=== PATIENT | male | born 1995 | race African-American/Black ===

== ENCOUNTER 2019-03-12 03:58 | Emergency (ER) | payer BC ==
[2019-03-12 04:05] VITALS: BP 117/78; PULSE 81; TEMP 98.5; BMI 21.7
--- NOTE | 2019-03-12 04:42 | PDOC ---
History of Present Illness - General Chief Complaint: Injury Stated Complaint: LACERATION TO UPPER LIP Time Seen by Provider: 03/12/19 04:17 History Source: Patient Exam Limitations: No Limitations - History of Present Illness Initial Comments: 03/12/19 04:42 This is a 23-year-old male who comes in complaining of a laceration to his upper lip. Patient was playing basketball when he collided with another player resulting in the laceration. Patient otherwise denies any loss of consciousness or any other complaints. Patient is otherwise healthy is immunizations are up-to -date. Allergies: as per nursing notes Past Medical History: none Social history: Lives with family. No smoking. No alcohol. No illicit drugs. Surgical history: None General: No fevers or chills, no weakness, no weight loss HEENT: No change in vision. No sore throat,. No ear pain, laceration upper lip as per history of present illness CardioVascular: no chest discomfort. No shortness of breath Respiratory:No cough, or wheezing. Gastrointestinal: no nausea, vomiting, diarrhea or constipation, No rectal bleeding Genitourinary: No dysuria, hematuria, or frequency Musculoskeletal: No joint or muscle pain or swelling Neurologic: No headache, vertigo, dizziness or loss of consciousness Psychiatric: nor depression Skin: No rashes or easy bruising Endocrine: no increased thirst or abnormal weight change Allergic: no skin or latex allergy All other systems reviewed and normal GENERAL: The patient is awake, alert, and fully oriented, in no acute distress. HEAD: There is a V-shaped laceration to the upper lip approximately 1/2 cm total length. Teeth are intact, there is no tenderness of the jaw. EYES: Pupils equal, round and reactive to light, extraocular movements intact, sclera anicteric, conjunctiva clear. EXTREMITIES:atraumatic, Normal range of motion, no edema. NEUROLOGICAL: Normal speech, normal gait. PSYCH: Normal mood, normal affect. SKIN: Warm, Dry, normal turgor, no rashes or lesions noted. Procedure note: Laceration repair Laceration was cleaned with peroxide and anesthetized with 1% lidocaine no epinephrine Laceration was closed with 4 sutures of 5-0 Ethilon. Sutures were simple interrupted Bacitracin was placed on the laceration Patient tolerated well Past History - Past Medical History Allergies/Adverse Reactions: Allergies Allergy/AdvReac Type Severity Reaction Status Date / Time No Known Allergies Allergy Verified 03/12/19 04:00 Home Medications: Ambulatory Orders NK [No Known Home Medication] 02/11/16 COPD: No Other medical history: NERVE DAMAGE RIGHT ARM - Immunization History Immunization Up to Date: Yes - Suicide/Smoking/Psychosocial Hx Smoking History: Never smoked Have you smoked in the past 12 months: No Information on smoking cessation initiated: No Hx Alcohol Use: No Drug/Substance Use Hx: No Substance Use Type: None *Physical Exam - Vital Signs Last Vital Signs Temp Pulse Resp BP Pulse Ox 98.5 F 81 16 117/78 96 03/12/19 04:01 03/12/19 04:01 03/12/19 04:01 03/12/19 04:01 03/12/19 04:01 *DC/Admit/Observation/Transfer Diagnosis at time of Disposition: Laceration of lip Qualifiers: Encounter type: initial encounter Qualified Code(s): S01.511A - Laceration without foreign body of lip, initial encounter - Discharge Dispostion Disposition: HOME Condition at time of disposition: Stable Decision to Admit order: No - Referrals - Patient Instructions Printed Discharge Instructions: DI for Laceration Repair -- Simple Additional Instructions: Do not get the area wet for 72 hours. Clean the area with peroxide once a day and reapply the bacitracin. Suture removal in one week U can go to your doctor or return to the ED for suture removal. Return to the emergency department immediately with ANY new, persistent or worsening symptoms. Continue any medications as previously prescribed by your physician. You should follow up with your primary doctor as soon as possible regarding today's emergency department visit. . Please make sure your doctor reviews the results of your emergency evaluation. Thank you for coming to the Emergency Department today for your care. It was a pleasure to see you today. Please note that your evaluation is INCOMPLETE until you follow-up with your doctor. - Post Discharge Activity
== END 2019-03-12 04:48 | disposition home or self-care (01) ==
LOC: FER 03:58
PROC: 0CQ0XZZ Repair Upper Lip, External Approach (ICD-10-PCS; principal; 2019-03-12)
DX: S01.511A Laceration without foreign body of lip, initial encounter (principal); W50.0XXA Accidental hit or strike by another person, initial encounter; Y93.67 Activity, basketball; Y92.310 Basketball court as the place of occurrence of the external cause
CPT/HCPCS: 99281-25

== ENCOUNTER 2019-03-18 23:31 | Emergency (ER) | payer BC ==
[2019-03-18 23:48] VITALS: BP 144/95; PULSE 60; TEMP 98
--- NOTE | 2019-03-18 23:58 | PDOC ---
Suture Removal/Wound Check HPI - History of Present Illness Chief Complaint: Laceration Stated Complaint: STICHES REMOVAL Time Seen by Provider: 03/18/19 23:45 Past History - Past Medical History Allergies/Adverse Reactions: Allergies Allergy/AdvReac Type Severity Reaction Status Date / Time No Known Allergies Allergy Verified 03/12/19 04:00 Home Medications: Ambulatory Orders NK [No Known Home Medication] 02/11/16 COPD: No - Immunization History Immunization Up to Date: Yes - Suicide/Smoking/Psychosocial Hx Smoking History: Unknown if ever smoked Have you smoked in the past 12 months: No Number of Cigarettes Smoked Daily: 0 If you are a former smoker, when did you quit?: 0 Information on smoking cessation initiated: No Hx Alcohol Use: No Drug/Substance Use Hx: No Substance Use Type: None Suture Removal/Wound Check PE - Physical Exam Laceration/Wound Check Symptoms: reports: None Current Severity Level: None Maximum Severity Level: None Pain Localization: None Location of Laceration/Wound: right: Mouth *Review of Systems - Review of Systems Able to Perform ROS?: Yes Comments:: 12 point review of systems is negative except for what is noted in the history of present illness *Physical Exam - Vital Signs Last Vital Signs Temp Pulse Resp BP Pulse Ox 98 F 60 16 144/95 100 03/18/19 23:37 03/18/19 23:37 03/18/19 23:37 03/18/19 23:37 03/18/19 23:37 - Physical Exam Comments: GENERAL:adult male, alert and oriented, in no distress HEAD: Normal with no signs of trauma. EYES: PERRLA, EOMI, sclera anicteric, conjunctiva clear. ENT: Well-healed 1 cm V-shaped laceration above right side of the upper lip; no edema/tenderness/purulent discharge evident. 4 interrupted sutures of nylon(5-0) removed without difficulty. Small amount of bacitracin ointment placed on healed wound. Patient tolerated procedure well *DC/Admit/Observation/Transfer Diagnosis at time of Disposition: Visit for suture removal - Discharge Dispostion Disposition: HOME Condition at time of disposition: Stable - Referrals - Patient Instructions Printed Discharge Instructions: DI for Suture Removal Additional Instructions: Bacitracin to wound daily for the next week return or see your doctor if area becomes swollen/painful - Post Discharge Activity
== END 2019-03-19 00:20 | disposition home or self-care (01) ==
LOC: FER 23:31 → JER 23:31 → FER 03-19 00:20
DX: Z48.02 Encounter for removal of sutures (principal)
CPT/HCPCS: 99281-25